=== PATIENT | female | born 1940 | race Caucasian/White ===

== ENCOUNTER → 2016-09-06 | Outpatient (CLI) | payer OTHER | LOC: MMPC 11:11 | PROVIDERS: ATTEND Internal Medicine | DX: F41.8 Other specified anxiety disorders (principal); E03.9 Hypothyroidism, unspecified; M70.62 Trochanteric bursitis, left hip; M54.9 Dorsalgia, unspecified; I10 Essential (primary) hypertension; K21.9 Gastro-esophageal reflux disease without esophagitis; G43.109 Migraine with aura, not intractable, without status migrainosus; E03.4 Atrophy of thyroid (acquired); E89.0 Postprocedural hypothyroidism; Z85.850 Personal history of malignant neoplasm of thyroid; Z85.3 Personal history of malignant neoplasm of breast; Z90.13 Acquired absence of bilateral breasts and nipples; Z63.4 Disappearance and death of family member | CPT/HCPCS: 99203; G0463 ==

== ENCOUNTER → 2016-09-14 | Outpatient (CLI) | payer OTHER ==
[2016-09-14 13:59] LABS: BASOPHILS # (AUTO) 0.05 10*3/UL; BASOPHILS % (AUTO) 0.7 % (0-1); EOSINOPHILS # (AUTO) 0.11 10*3/UL; EOSINOPHILS % (AUTO) 1.5 % (0-8); HEMATOCRIT 40.8 % (37.0-47.0); HEMOGLOBIN 13.2 g/dL (12.0-16.0); LYMPHOCYTES # (AUTO) 2.49 10*3/uL; MEAN CORPUSCULAR HEMOGLOBIN 30.1 PG (27-31); MEAN CORPUSCULAR HGB CONC 32.4 g/dL (33-37); MEAN CORPUSCULAR VOLUME 93.2 FL (81-99); MEAN PLATELET VOLUME 10.5 FL (7.4-12.2); MONOCYTES # (AUTO) 0.51 10*3/UL (0.3-0.8); MONOCYTES % (AUTO) 6.7 % (5-15); NEUTROPHILS % (AUTO) 58.1 % (50-80); RED BLOOD COUNT 4.38 10^6/uL (4.20-5.40)
[2016-09-14 14:02] LABS: PLATELET MORPHOLOGY COMMENT NORMAL MORPHOLOGY (NORM); RBC MORPHOLOGY COMMENT NORMAL MORPHOLOGY (NORM); WBC MORPHOLOGY COMMENT NORMAL MORPHOLOGY (NORM)
[2016-09-14 14:22] LABS: BUN/CREATININE RATIO 18.75 (6-20); CHOL/HDL RATIO 3.87 RATIO (0-4.0); LDL CHOLESTEROL,CALCULATED 139.6 mg/dL; SERUM ALBUMIN 4.1 g/dL (3.5-4.8)
[2016-09-14 14:25] LABS: BILIRUBIN,URINE SMALL (NEG); CLARITY,URINE CLEAR (CLEAR); COLOR,URINE YELLOW; GLUCOSE, URINE (UA) NEGATIVE (NEG); NITRATE,URINE NEGATIVE (NEG); OCCULT BLOOD,URINE NEGATIVE (NEG); PH,URINE 5.5 (5.0-8.5); PROTEIN,URINE TRACE mg/dl (NEG); UROBILINOGEN,URINE 0.2 mg/dL (0.2)
[2016-09-14 14:27] LABS: RBC,URINE 0 /hpf; SQUAMOUS EPITHELIAL CELL,UR FEW; WBC,URINE 0-1
[2016-09-14 14:35] LABS: URINE SAMPLE TYPE CLEAN CATCH URINE
[2016-09-15 16:56] LABS: FREE T4 (FREE THYROXINE) 1.36 ng/dL (0.93-1.71)
== END ==
LOC: LAB 13:45
PROVIDERS: ATTEND Internal Medicine
DX: E03.9 Hypothyroidism, unspecified (principal); E03.4 Atrophy of thyroid (acquired); I10 Essential (primary) hypertension; M70.62 Trochanteric bursitis, left hip; M54.5 Low back pain; F41.8 Other specified anxiety disorders; Z85.3 Personal history of malignant neoplasm of breast
CPT/HCPCS: 36415; 80053; 80061; 81001; 84439; 84443; 84481; 85025; 86140

== ENCOUNTER → 2016-09-22 | Outpatient (CLI) | payer OTHER | LOC: MMPC 11:11 | PROVIDERS: ATTEND Internal Medicine | DX: R53.81 Other malaise (principal); I10 Essential (primary) hypertension; F41.8 Other specified anxiety disorders; K21.9 Gastro-esophageal reflux disease without esophagitis; E89.0 Postprocedural hypothyroidism; M70.62 Trochanteric bursitis, left hip; Z85.3 Personal history of malignant neoplasm of breast; Z85.850 Personal history of malignant neoplasm of thyroid; Z63.4 Disappearance and death of family member; Z90.13 Acquired absence of bilateral breasts and nipples | CPT/HCPCS: 99213 ==

== ENCOUNTER → 2016-10-04 | Outpatient (CLI) | payer OTHER | LOC: MMPC 11:11 | PROVIDERS: ATTEND Internal Medicine | DX: I10 Essential (primary) hypertension (principal); F41.8 Other specified anxiety disorders; K21.9 Gastro-esophageal reflux disease without esophagitis; Z85.3 Personal history of malignant neoplasm of breast; Z63.4 Disappearance and death of family member | CPT/HCPCS: 99213; G0463 ==

== ENCOUNTER → 2016-10-14 | Outpatient (CLI) | payer OTHER | LOC: LAB 10:23 | PROVIDERS: ATTEND Internal Medicine | DX: R53.81 Other malaise (principal) | CPT/HCPCS: 36415; 82607 ==